=== PATIENT | female | born 1965 | race Caucasian/White ===

== ENCOUNTER 2021-04-13 10:29 | Emergency (ER) | payer BC, SELFPAY ==
[2021-04-13 10:35] VITALS: BP 115/59; PULSE 90; RESP 16; TEMP 37.1; O2SAT 99
--- NOTE | 2021-04-13 11:00 | ED.URI ---
HPI - URI/Sore Throat General Chief Complaint: Upper Respiratory Infection Stated Complaint: Bodyaches/Fever/Cough Time Seen by Provider: 04/13/21 10:45 Source: patient and RN notes reviewed Mode of arrival: ambulatory Limitations: no limitations History of Present Illness HPI Narrative: Patient presents today complaining of a 2-day history of fatigue, body aches, cough, fever up to 101.2. Denies congestion, rhinorrhea, sore throat, nausea, vomiting, diarrhea. She has been taking DayQuil, NyQuil, TheraFlu with mild relief. She has not had vaccine against COVID-19 or influenza. MD elicited complaint: fever and cough Related Data Home Medications Medication Instructions Recorded Confirmed No Home Medications 04/13/21 04/13/21 Allergies Allergy/AdvReac Type Severity Reaction Status Date / Time No Known Allergies Allergy Verified 04/13/21 10:45 Review of Systems Review of Systems: CONSTITUTIONAL: Denies chills, or sweats.+ Body aches, fever, fatigue EYES: Denies visual changes, redness, or discharge. ENT: Denies rhinorrhea, congestion, sore throat, or otalgia. CARDIOVASCULAR: Denies chest pain, palpitations, or edema. RESPIRATORY: Denies dyspnea.+ Cough GASTROINTESTINAL: Denies abdominal pain, nausea, vomiting, or diarrhea. GENITOURINARY: Denies dysuria or hematuria. SKIN: Denies rash, itching, or wounds. MUSCULOSKELETAL: Denies back pain, joint pain, or myalgia. NEUROLOGIC: Denies headache, numbness, tingling, or weakness. PSYCH: Denies depression or anxiety. PMFSH Past Medical History Medical History History of vaginal delivery x 2 Surgical History Surgical History History of breast augmentation Family History Family History Father Family history of diabetes mellitus in first degree relative Diabetes mellitus, Onset Age: 84 Depression, Onset Age: 84 Sibling Family history of diabetes mellitus in first degree relative Mother Family history of malignant neoplasm of skin Hypertension Heart disease Social History Social History Smoking status: Never smoker Second hand tobacco smoke exposure: No Alcohol intake: never Substance use: never Substance use type: does not use Comments At time of signature, I have reviewed and agree with nursing past medical, surgical, social and family history unless otherwise noted. Please see nursing chart for further information. There is no relevant family history pertinent to the presenting complaint Exam Narrative: GENERAL: Well-appearing, well-nourished, and in no acute distress. HEAD: Normocephalic, atraumatic. EYES: EOMI. No redness or drainage. Conjunctivae normal. ENT: Mucous membranes pink and moist. Nares clear. No rhinorrhea. TMs normal bilaterally. Throat normal. Uvula midline. NECK: Normal AROM. Supple. No lymphadenopathy. CHEST: No respiratory distress. Clear to auscultation. HEART: Regular rate and rhythm. No murmur appreciated. Normal peripheral pulses. EXTREMITIES: Normal range of motion. No edema. SKIN: Warm, dry, no rash. Capillary refill normal. Normal skin turgor. NEURO: No focal deficits. Alert and oriented x3. Gait steady. PSYCH: Normal affect. No signs of depression or anxiety. Course Course Emergency Course: Offered patient order for drive-through Covid testing in [place] on Saturday, patient declined and states she will get a test in the community. Vital Signs Vital signs: Vital Signs Temperature 98.7 F 04/13/21 10:35 Pulse Rate 90 04/13/21 10:35 Respiratory Rate 16 04/13/21 10:35 Blood Pressure 115/59 L 04/13/21 10:35 Pulse Oximetry 99 04/13/21 10:35 Temperature 98.7 F 04/13/21 10:35 Pulse Rate 90 04/13/21 10:35 Respiratory Rate
== END 2021-04-13 11:30 | disposition home or self-care (01) ==
PROVIDERS: Emergency Provider Nurse Practitioner; PCP Internal Medicine
DX: B34.9 Viral infection, unspecified (principal)
CPT/HCPCS: 87804; 99213; G0463

== ENCOUNTER 2021-04-21 09:24 | Emergency (ER) | payer BC, SELFPAY ==
[2021-04-21 09:38] VITALS: BP 122/84; PULSE 99; RESP 16; TEMP 36.8; O2SAT 100
--- NOTE | 2021-04-21 10:17 | ED.URI ---
HPI - URI/Sore Throat General Chief Complaint: Upper Respiratory Infection Stated Complaint: Sore Throat Time Seen by Provider: 04/21/21 10:22 Source: patient and RN notes reviewed Mode of arrival: ambulatory Limitations: no limitations History of Present Illness HPI Narrative: 55-year-old female presents with concern for sore throat. Reports she tested positive for Covid and is on day 11 of symptoms. Reports her sore throat recently started and worsened. She denies fever. Reports painful swallowing. She denies excessive cough, loss of taste or smell. Reports been taking DayQuil, NyQuil, TheraFlu. MD elicited complaint: cough and sore throat Related Data Allergies Allergy/AdvReac Type Severity Reaction Status Date / Time No Known Allergies Allergy Verified 04/21/21 10:09 Review of Systems Review of Systems: CONSTITUTIONAL: Denies malaise, chills, sweats, or fever. EYES: Denies visual changes, redness, or discharge. ENT: Reports rhinorrhea, sore throat. Denies congestion, sinus pain, otalgia and sore throat. CARDIOVASCULAR: Denies chest pain, palpitations, or edema. RESPIRATORY: Reports cough. Denies dyspnea. GASTROINTESTINAL: Denies abdominal pain, nausea, vomiting, diarrhea SKIN: Denies rash or itching. MUSCULOSKELETAL: Denies myalgia. NEUROLOGIC: Denies headache. All systems reviewed & are unremarkable except as noted in HPI and below PMFSH Past Medical History Medical History History of vaginal delivery x 2 Surgical History Surgical History History of breast augmentation Family History Family History Father Family history of diabetes mellitus in first degree relative Diabetes mellitus, Onset Age: 84 Depression, Onset Age: 84 Sibling Family history of diabetes mellitus in first degree relative Mother Family history of malignant neoplasm of skin Hypertension Heart disease Social History Social History Smoking status: Never smoker Second hand tobacco smoke exposure: No Alcohol intake: never Substance use: never Substance use type: does not use Comments At time of signature, agree with nursing past medical, surgical, social and family history. There is no relevant family history pertinent to the presenting complaint Exam Narrative: GENERAL: Well-appearing, well-nourished, and in no acute distress. HEAD: Normocephalic EYES: PERRLA, conjunctivae clear ENT: Nares clear, clear discharge. Mucous membranes moist. TM pearly jarrell with dull light reflex bilaterally; no tragal tenderness. Oropharynx erythematous without lesions. Tonsils not enlarged and without exudate, no drooling, no hoarseness, no trismus, uvula midline. NECK: Supple. No lymphadenopathy CHEST: Clear to auscultation, breath sounds equal. No wheezing, rhonchi, rales, or stridor. No respiratory distress, speaks in full sentences. HEART: Regular rate and rhythm. No murmur heard. SKIN: Warm, dry, no rash. NEURO: Alert and oriented x3. PSYCH: Normal mood and affect Course Course Emergency Course: Patient is aware of diagnosis, understands and agrees to treatment plan. Anticipatory guidance given. Patient agrees to follow-up as directed and is aware of reasons to seek care at the emergency department. Portions of this record may have been created with voice recognition software Vital Signs Vital signs: Vital Signs Temperature 98.2 F 04/21/21 09:38 Pulse Rate 99 04/21/21 09:38 Respiratory Rate 16 04/21/21 09:38 Blood Pressure 122/84 04/21/21 09:38 Pulse Oximetry 100 04/21/21 09:38 Temperature 98.2 F 04/21/21 09:38 Pulse Rate 99 04/21/21 09:38 Respiratory Rate 16 04/21/21 09:38 Blood Pressure 122/84 04/21/21 09:38 Pulse Oximetry 100 04/21/21 09:38
== END 2021-04-21 10:38 | disposition home or self-care (01) ==
PROVIDERS: Emergency Provider Nurse Practitioner; PCP Internal Medicine
DX: U09.9 Post COVID-19 condition, unspecified (principal); J02.9 Acute pharyngitis, unspecified; R05.9 Cough, unspecified
CPT/HCPCS: 87081; 87880; 99213; G0463

== ENCOUNTER 2022-01-14 15:35 | Emergency (ER) | payer BC, SELFPAY ==
[2022-01-14 15:44] VITALS: BP 142/62; PULSE 81; RESP 14; TEMP 36.4; O2SAT 100
--- NOTE | 2022-01-14 16:41 | ED.GENADULT ---
HPI - General Adult General Chief complaint: Upper Respiratory Infection Stated complaint: Sore Throat Source: patient Mode of arrival: ambulatory Limitations: no limitations History of Present Illness HPI narrative: Patient presents for evaluation of sore throat for the last 2 days. She denies any fever, chills, nausea, vomiting, otalgia, respiratory symptoms. She was babysitting her grandchild who had a runny nose prior to the time of symptom onset. She has been taking DayQuil and NyQuil for her symptoms. No additional complaints or concerns Related Data Allergies Allergy/AdvReac Type Severity Reaction Status Date / Time codeine Allergy Nausea and Verified 01/14/22 16:02 Vomiting Review of Systems Review of Systems: CONSTITUTIONAL: Denies fever, chills, or sweats. EYES: Denies visual changes, redness, or discharge. ENT: Reports sore throat. Denies rhinorrhea, congestion, or otalgia. CARDIOVASCULAR: Denies chest pain, palpitations, or edema. RESPIRATORY: Denies cough or dyspnea. GASTROINTESTINAL: Denies abdominal pain, nausea, vomiting, or diarrhea. GENITOURINARY: Denies dysuria or hematuria. SKIN: Denies rash or itching. MUSCULOSKELETAL: Denies back pain, joint pain, or myalgia. NEUROLOGIC: Denies headache, numbness, dizziness, or weakness. PSYCHIATRIC: Denies anxiety or depression. PMFSH Past Medical History Medical History History of vaginal delivery x 2 Surgical History Surgical History History of breast augmentation Family History Family History Father Family history of diabetes mellitus in first degree relative Diabetes mellitus, Onset Age: 84 Depression, Onset Age: 84 Sibling Family history of diabetes mellitus in first degree relative Mother Family history of malignant neoplasm of skin Hypertension Heart disease Social History Social History Smoking status: Never smoker Second hand tobacco smoke exposure: No Alcohol intake: never Substance use: never Substance use type: does not use Exam Narrative: GENERAL: Well-appearing, well-nourished, and in no acute distress. HEAD: Normocephalic, atraumatic. EYES: PERRLA and EOMI. ENT: Nares clear, no rhinorrhea or epistaxis. Mucous membranes moist. Oropharynx without tonsillar hypertrophy exudate or other lesions, however there is posterior pharyngeal erythema. Uvula is midline. Bilateral TMs pearly jarrell nonbulging NECK: Supple. No adenopathy or masses. No carotid bruits or JVD CHEST: Clear to auscultation. No respiratory distress. No wheezes rales or rhonchi HEART: Regular rate and rhythm. No murmur heard. Normal peripheral pulses. ABDOMEN: Soft, nontender, nondistended, normal active bowel sounds. EXTREMITIES: Normal range of motion. No edema. SKIN: Warm, dry, no rash. NEURO: No focal deficits. Alert and oriented x3. PSYCH: Normal mood and affect. Course Course Emergency Course: This is a 56-year-old female who presented for evaluation of sore throat. Rapid strep was negative. She has no other symptoms beyond sore throat. We will treat with amoxicillin as rapid may be false negative. Cepacol and ibuprofen for pain. Follow up outpatient for further evaluation and treatment and go to ER for pain or swelling. Patient in agreement with plan of care. Level of Care: Express Care Visit Vital Signs Vital signs: Vital Signs Temperature 36.4 C 01/14/22 15:44 Pulse Rate 81 01/14/22 15:44 Respiratory Rate 14 01/14/22 15:44 Blood Pressure 142/62 H 01/14/22 15:44 Pulse Oximetry 100 01/14/22 15:44 Oxygen Delivery Room Air 01/14/22 15:44 Temperature 36.4 C 01/14/22 15:44 Pulse Rate 81 01/14/22 15:44 Respiratory Rate 14 01/14/22 15:44 Blood Press
== END 2022-01-14 16:43 | disposition home or self-care (01) ==
PROVIDERS: Emergency Provider Nurse Practitioner; PCP Family Medicine
DX: J02.9 Acute pharyngitis, unspecified (principal)
CPT/HCPCS: 87081; 87880; 99213; G0463